=== PATIENT | female | born 1980 | race Caucasian/White ===

== ENCOUNTER 2023-04-26 14:28 | Emergency (ER) | payer OTHER ==
[2023-04-26 15:03] VITALS: TEMP 97.8
--- NOTE | 2023-04-26 15:33 | ED ---
General Adult HPI - General Chief complaint: Extremity Injury, Lower Stated complaint: Foot injury Time Seen by Provider: 04/26/23 15:06 Source: patient Mode of arrival: wheelchair Limitations: no limitations - History of Present Illness Initial comments: Dictation was produced using [employer] dictation software. please excuse any grammatical, word or spelling errors. Chief Complaint: 42-year-old female with left ankle pain History of Present Illness: Patient is a 42-year-old female at approximately 8 PM last night she missed a step and inverted her left ankle. Patient states she was able to walk though with a limp. She notices some bruising to the lateral dorsal area of the left foot. The ROS documented in this emergency department record has been reviewed and confirmed by me. Those systems with pertinent positive or negative responses have been documented in the HPI. All other systems are other negative and/or noncontributory. - Related Data Allergies Allergy/AdvReac Type Severity Reaction Status Date / Time acetaminophen Allergy Anaphylaxis Verified 04/26/23 14:41 [From Darvocet-N] bupropion [From Wellbutrin] Allergy Unknown Verified 04/26/23 14:41 duloxetine [From Cymbalta] Allergy Nausea & Verified 04/26/23 14:41 Vomiting propoxyphene Allergy Anaphylaxis Verified 04/26/23 14:41 [From Darvocet-N] tramadol [From Ultram] Allergy Nausea & Verified 04/26/23 14:41 Vomiting Review of Systems ROS Statement: Those systems with pertinent positive or pertinent negative responses have been documented in the HPI. ROS Other: All systems not noted in ROS Statement are negative. Past Medical History History of Any Multi-Drug Resistant Organisms: None Reported Past Surgical History: Appendectomy, Back Surgery, Cholecystectomy, Tonsillectomy Past Psychological History: Anxiety, Bipolar Smoking Status: Vaper Past Alcohol Use History: None Reported Past Drug Use History: None Reported General Exam - General Exam Comments Initial Comments: Visual Physical Exam Vital signs reviewed General: Well-appearing, nontoxic, no acute distress. Head: Normocephalic, atraumatic Eyes: PERRLA, EOMI ENT: Airway patent Chest: Nonlabored breathing Skin: No visual rash, normal skin tone Neuro: Alert and oriented 3 Musculoskeletal: No gross abnormalities Left foot: Some bruising over the anterior talofibular ligament, no midfoot pain Limitations: no limitations Course Vital Signs 04/26/23 14:36 Temperature 97.8 F Pulse Rate 86 Respiratory 16 Rate Blood Pressure 113/77 O2 Sat by Pulse 97 Oximetry Medical Decision Making - Medical Decision Making Was pt. sent in by a medical professional or institution (ANDREAS Zaidi, TESTING PROJECTS ADMINISTRATOR, urgent care, hospital, or snf...) When possible be specific @ -No Did you speak to anyone other than the patient for history (EMS, parent, family, police, friend...)? What history was obtained from this source @ -No Did you review nursing and triage notes (agree or disagree)? Why? @ -I reviewed and agree with nursing and triage notes Were old charts reviewed (outside hosp., previous admission, EMS record, old EKG, old radiological studies, urgent care reports/EKG's, snf records)? Report findings @ -No old charts were reviewed Differential Diagnosis (chest pain, altered mental status, abdominal pain women, abdominal pain men, vaginal bleeding, musculoskeletal, weakness, fever, dyspnea, syncope, headache, dizziness, GI bleed, back pain, seizure, CVA, palpatations, mental health)? @ -Not applicable EKG interpreted by me (3pts min.). @ -None done X-rays interpreted by me (1pt min.). @ -X-ray of the foot and ankle shows no occult fractures or any acute processes CT interpreted by me (1pt min.). @ -None done U/S interpreted by me (1pt. min.). @ -None done What testing was considered but not performed or refused? (CT, X-rays, U/S, labs)? Why? @ -None What meds were considered but not given or refused? Why? @ -None Did you discuss the management of the patient with other professionals (professionals i.e. ANDREAS Zaidi, TESTING PROJECTS ADMINISTRATOR, lab, RT, psych nurse, social services specialist, problem manager, teacher, trust officer, case resource manager)? Give summary @ -No Was smoking cessation discussed for >3mins.? @ -No Was critical care preformed (if so, how long)? @ -No Were there social determinants of health that impacted care today? How? (Homelessness, low income, unemployed, alcoholism, drug addiction, transportation, low edu. Level, literacy, decrease access to med. care, correction, rehab)? @ -No Was there de-escalation of care discussed even if they declined (Discuss DNR or withdrawal of care, Hospice)? DNR status @ -No What co-morbidities impacted this encounter? (DM, HTN, Smoking, COPD, CAD, Cancer, CVA, ARF, Chemo, Hep., AIDS, mental health diagnosis, sleep apnea, morbid obesity)? @ -None Was patient admitted / discharged? Hospital course, mention meds given and route, prescriptions, significant lab abnormalities, going to OR and other pertinent info. @ -42-year-old female presents emergency department with left ankle injury. Patient clinical presentation consistent with ankle sprain. Vital signs stable. Physical examination shows bruising around the anterior talofibular ligament. No concern of Lisfranc injury and that she has no midfoot pain. Patient given crutches told to weight-bear as tolerated take NSAIDs and follow-up with primary doctor. Undiagnosed new problem with uncertain prognosis? @ -No Drug Therapy requiring intensive monitoring for toxicity (Heparin, Nitro, Insulin, Cardizem)? @ -No Were any procedures done? @ -No Diagnosis/symptom? Acute, or Chronic, or Acute on Chronic? Uncomplicated (without systemic symptoms) or Complicated (systemic symptoms)? @ -Left ankle sprain Side effects of treatment? @ -No Exacerbation, Progression, or Severe Exacerbation? @ -No Poses a threat to life or bodily function? How? (Chest pain, [place], [place], pneumonia, PE, COPD, DKA, ARF, appy, cholecystitis, CVA, Diverticulitis, Homicidal, Suicidal, threat to staff... and all critical care pts) @ -yes Disposition Clinical Impression: Ankle sprain Disposition: HOME SELF-CARE Condition: Good Instructions (If sedation given, give patient instructions): Ankle Sprain (ED) Is patient prescribed a controlled substance at d/c from ED?: No Referrals: Nonstaff,Physician [Primary Care Provider] - 1-2 days Time of Disposition: 16:21
--- NOTE | 2023-04-26 15:52 | XR ---
EXAMINATION TYPE: XR foot complete LT, XR ankle complete LT DATE OF EXAM: 04/26/2023 3:39 PM CLINICAL INDICATION:Female, 42 years old with history of inversion injury; [facility] COMPARISON: None TECHNIQUE: XR foot complete LT, XR ankle complete LT examined in the AP, oblique, and lateral project ions. FINDINGS: No evidence of any acute osseous pathology. Mild soft tissue swelling around the ankle.. Joints are preserved. IMPRESSION: 1. No evidence of acute fracture. 2. Mild soft tissue swelling around the ankle likely secondary to underlying soft tissue ligamentous injury.
[2023-04-26 16:55] VITALS: BP 103/70; PULSE 72; RESP 18
== END 2023-04-26 16:42 | disposition home or self-care (01) ==
LOC: EC 14:28
DX: S93.402A Sprain of unspecified ligament of left ankle, initial encounter (principal); F17.290 Nicotine dependence, other tobacco product, uncomplicated; Z88.6 Allergy status to analgesic agent; Z88.8 Allergy status to other drugs, medicaments and biological substances; Z86.59 Personal history of other mental and behavioral disorders; Z88.5 Allergy status to narcotic agent; X50.0XXA Overexertion from strenuous movement or load, initial encounter
CPT/HCPCS: 99283